=== PATIENT | male | born 1945 | race Caucasian/White ===

== ENCOUNTER → 2016-12-26 | Outpatient (CLI) | payer OTHER ==
[~2016-12-26] MED LIST: ANTI-DIARRHEA2 MG PO; BROVANA15 MCG/2 M IH; CARAFATE1 GM PO; DURAGESIC25 MCG TD; Diflucan PO; EFFEXOR75 MG PO; FLOMAX0.4 MG PO; Flomax PO; MEGESTROL ACETA20 MG PO; Micro-K,K-Tab,K-Dur, PO; PERCOCET 5/31 TABLET PO; PREDNISONE10 MG PO; PROTONIX40 MG PO; PROVENTIL,2.5 MG/3 M IH; PYRIDIUM100 MG PO; Protonix PO; SPIRIVA1 INHALATI IH; TYLENOL EXTRA500 MG PO; Ultram PO; VENTOLIN HFA18 GM IH; Vancocin Oral Soluti PO; ZANTAC300 MG PO; ZOFRAN4 MG PO
== END | disposition home or self-care (01) ==
LOC: OPR 08:08 → EDSTATUS 09:00 → OPR 09:00
PROC: 0BBF3ZX Excision of Right Lower Lung Lobe, Percutaneous Approach, Diagnostic (ICD-10-PCS; principal; 2016-12-26)
PROC: BB241ZZ Computerized Tomography (CT Scan) of Bilateral Lungs using Low Osmolar Contrast (ICD-10-PCS; principal; 2016-12-26)
DX: C34.31 Malignant neoplasm of lower lobe, right bronchus or lung (principal); Z87.891 Personal history of nicotine dependence
CPT/HCPCS: 71010; 77012; 88305; 88341 TC; 88342 TC; J3010

== ENCOUNTER 2017-07-06 00:42 | Inpatient (IN) | payer OTHER ==
[~2017-07-06] VITALS: Ht 172.7 cm; Wt 77.3 kg
[~2017-07-06 00:42] MED LIST changes: +OMEPRAZOLE40 M1 PO
[2017-07-06 01:08] LABS: BASOPHIL (%) 0.1 % (0-1); EOSINOPHIL (%) 0.1 % (0-5); HEMATOCRIT 38.2 % (38.0-50.0); HEMOGLOBIN 12.8 G/DL (12.5-16.6); IMMATURE GRANULOCYTE (%) 0.7 % (0.0-0.7); LYMPHOCYTE (%) 3.8 % (15-42); LYMPHOCYTE COUNT 0.4 K/uL (1.0-2.8); MCH 36.3 PG (29.0-34.0); MCHC 33.5 G/DL (30.0-36.0); MCV 108.2 FL (86-99); MONOCYTE COUNT 0.6 K/uL (0-0.8); NEUTROPHIL (%) 89.3 % (45-76); NEUTROPHIL COUNT 8.7 K/uL (1.8-6.4); PLATELET COUNT 143 K/uL (156-360); RBC DIS.WIDTH-CV 14.2 % (11.8-14.6); RBC DIS.WIDTH-SD 56.6 % (39-53); RED BLOOD COUNT 3.53 M/uL (4.00-5.50); WHITE BLOOD COUNT 9.7 K/uL (4.1-10.2)
[2017-07-06 01:17] LABS: ALBUMIN 3.9 g/dL (3.2-4.8); CHLORIDE 106 mEq/L (99-109); SODIUM 139 mEq/L (136-147)
[2017-07-06 01:19] LABS: GLUCOSE 130 mg/dL (70-99); TOTAL PROTEIN 7.9 g/dL (6.4-8.3)
[2017-07-06 01:21] LABS: TOTAL BILIRUBIN 4.5 mg/dL (0.0-1.0)
[2017-07-06 01:23] LABS: ALKALINE PHOSPHATASE 225 IU/L (3-129); GFR ESTIMATE (CALCULATED) > 59 mL/min/ (58.99-99999)
[2017-07-06 01:24] LABS: UREA NITROGEN (BUN) 17 mg/dL (9-23)
[2017-07-06 01:25] LABS: AST (GOT) 204 IU/L (2-34)
[2017-07-06 01:26] LABS: ALT (GPT) 233 IU/L (3-49); LIPASE 9 U/L (1.0-51.0)
[2017-07-06 01:29] LABS: TROP-I INTERPRETATION NEGATIVE; TROPONIN-I < 0.01 ng/mL (0.0-0.30)
[2017-07-06 03:15] LABS: APPEARANCE CLEAR ((CLEAR)); BILIRUBIN MODERATE; BLOOD NEGATIVE; COLOR AMBER ((YELLOW)); GLUCOSE (STRIP) NEGATIVE; KETONES 5; LEUKOCYTES NEGATIVE; NITRITE NEGATIVE; PROTEIN (STRIP) 30; SPECIFIC GRAVITY 1.042 (1.000-1.030); UCUL ADDED? NO
[2017-07-06 06:53] LABS: ICTOTEST POSITIVE
[2017-07-06 17:17] VITALS: BP 162/80
[2017-07-06 19:35] VITALS: BP 140/80
[2017-07-06 23:17] VITALS: BP 167/92
[2017-07-07] VITALS (9 sets, daily range): BP systolic 139–180; BP diastolic 76–110
[2017-07-07 06:10] LABS: HEMATOCRIT 29.5 % (38.0-50.0); INTER. NORMALIZED RATIO 1.2; MCH 36.7 PG (29.0-34.0); MCHC 33.2 G/DL (30.0-36.0); MCV 110.5 FL (86-99); PLATELET COUNT 109 K/uL (156-360); RBC DIS.WIDTH-CV 14.6 % (11.8-14.6); RBC DIS.WIDTH-SD 59.1 % (39-53); WHITE BLOOD COUNT 4.9 K/uL (4.1-10.2)
[2017-07-07 06:17] LABS: HEMOGLOBIN 9.8 G/DL (12.5-16.6); RED BLOOD COUNT 2.67 M/uL (4.00-5.50)
[2017-07-07 06:27] LABS: ALBUMIN 2.8 G/DL (3.2-4.8); ALKALINE PHOSPHATASE 177 IU/L (3-129); ALT (GPT) 155 IU/L (3-49); AST (GOT) 127 IU/L (2-34); CHLORIDE 107 MEQ/L (99-109); CREATININE 0.9 MG/DL (0.6-1.3); GFR ESTIMATE (CALCULATED) > 59 mL/min/ (58.99-99999); POTASSIUM 3.6 MEQ/L (3.7-5.4); SODIUM 138 MEQ/L (136-147); TOTAL PROTEIN 5.3 G/DL (6.4-8.3); UREA NITROGEN (BUN) 11 mg/dL (9-23)
[2017-07-07 06:28] LABS: GLUCOSE 84 mg/dL (70-99)
[2017-07-08 04:00] VITALS: BP 136/88
[2017-07-08 06:33] LABS: HEMATOCRIT 30.8 % (38.0-50.0); MCH 35.5 PG (29.0-34.0); MCHC 32.5 G/DL (30.0-36.0); MCV 109.2 FL (86-99); PLATELET COUNT 123 K/uL (156-360); RBC DIS.WIDTH-CV 14.7 % (11.8-14.6); RBC DIS.WIDTH-SD 59.5 % (39-53); RED BLOOD COUNT 2.82 M/uL (4.00-5.50); WHITE BLOOD COUNT 4.6 K/uL (4.1-10.2)
[2017-07-08 06:44] LABS: ALKALINE PHOSPHATASE 185 IU/L (3-129); ALT (GPT) 174 IU/L (3-49); AST (GOT) 142 IU/L (2-34); CHLORIDE 108 MEQ/L (99-109); CREATININE 0.9 MG/DL (0.6-1.3); GFR ESTIMATE (CALCULATED) > 59 mL/min/ (58.99-99999); GLUCOSE 74 mg/dL (70-99); POTASSIUM 3.8 MEQ/L (3.7-5.4); SODIUM 141 MEQ/L (136-147); TOTAL BILIRUBIN 4.9 MG/DL (0.0-1.0); TOTAL PROTEIN 5.6 G/DL (6.4-8.3); UREA NITROGEN (BUN) 8 mg/dL (9-23)
[2017-07-08 07:06] VITALS: BP 153/92
[2017-07-08 11:32] VITALS: BP 184/89
[2017-07-08 15:30] VITALS: BP 196/92
[2017-07-08 21:43] VITALS: BP 181/86
[2017-07-08 23:27] VITALS: BP 141/83
[2017-07-09 03:48] VITALS: BP 164/76
[2017-07-09 06:26] LABS: HEMATOCRIT 30.9 % (38.0-50.0); HEMOGLOBIN 10.3 G/DL (12.5-16.6); MCH 36.8 PG (29.0-34.0); MCHC 33.3 G/DL (30.0-36.0); MCV 110.4 FL (86-99); PLATELET COUNT 122 K/uL (156-360); RBC DIS.WIDTH-SD 61.1 % (39-53); WHITE BLOOD COUNT 5.5 K/uL (4.1-10.2)
[2017-07-09 06:52] LABS: ALBUMIN 2.9 G/DL (3.2-4.8); ALKALINE PHOSPHATASE 190 IU/L (3-129); ALT (GPT) 192 IU/L (3-49); AST (GOT) 143 IU/L (2-34); CHLORIDE 107 MEQ/L (99-109); CREATININE 0.9 MG/DL (0.6-1.3); GFR ESTIMATE (CALCULATED) > 59 mL/min/ (58.99-99999); GLUCOSE 88 mg/dL (70-99); POTASSIUM 3.8 MEQ/L (3.7-5.4); SODIUM 141 MEQ/L (136-147); TOTAL PROTEIN 5.3 G/DL (6.4-8.3); UREA NITROGEN (BUN) 11 mg/dL (9-23)
[2017-07-09 06:53] LABS: TOTAL BILIRUBIN 3.7 MG/DL (0.0-1.0)
[2017-07-09 08:39] VITALS: BP 165/92
[2017-07-09 11:00] VITALS: BP 128/78
[2017-07-09 15:00] VITALS: BP 136/76
[2017-07-09 19:46] VITALS: BP 132/84; BP 156/80
[2017-07-09 22:51] VITALS: BP 153/67
[2017-07-10 06:20] LABS: HEMATOCRIT 29.7 % (38.0-50.0); HEMOGLOBIN 9.8 G/DL (12.5-16.6); MCH 36.7 PG (29.0-34.0); MCV 111.2 FL (86-99); PLATELET COUNT 120 K/uL (156-360); RBC DIS.WIDTH-CV 15.4 % (11.8-14.6); RBC DIS.WIDTH-SD 61.9 % (39-53); RED BLOOD COUNT 2.67 M/uL (4.00-5.50); WHITE BLOOD COUNT 5.1 K/uL (4.1-10.2)
[2017-07-10 07:44] LABS: ALBUMIN 2.7 G/DL (3.2-4.8); ALKALINE PHOSPHATASE 175 IU/L (3-129); ALT (GPT) 168 IU/L (3-49); AST (GOT) 108 IU/L (2-34); CHLORIDE 108 MEQ/L (99-109); CREATININE 0.9 MG/DL (0.6-1.3); GFR ESTIMATE (CALCULATED) > 59 mL/min/ (58.99-99999); GLUCOSE 85 mg/dL (70-99); POTASSIUM 4.2 MEQ/L (3.7-5.4); SODIUM 140 MEQ/L (136-147); TOTAL PROTEIN 5.2 G/DL (6.4-8.3); UREA NITROGEN (BUN) 13 mg/dL (9-23)
[2017-07-10 07:47] LABS: TOTAL BILIRUBIN 2.4 MG/DL (0.0-1.0)
[2017-07-10 08:27] VITALS: BP 145/81
[2017-07-10 15:48] VITALS: BP 168/90
[2017-07-10 22:57] VITALS: BP 157/80; BP 188/92
[2017-07-11 06:25] LABS: ALBUMIN 2.6 G/DL (3.2-4.8); ALKALINE PHOSPHATASE 154 IU/L (3-129); ALT (GPT) 144 IU/L (3-49); AST (GOT) 81 IU/L (2-34); CHLORIDE 107 MEQ/L (99-109); CREATININE 0.7 MG/DL (0.6-1.3); GFR ESTIMATE (CALCULATED) > 59 mL/min/ (58.99-99999); GLUCOSE 82 mg/dL (70-99); POTASSIUM 3.4 MEQ/L (3.7-5.4); SODIUM 139 MEQ/L (136-147); TOTAL PROTEIN 5.1 G/DL (6.4-8.3); UREA NITROGEN (BUN) 9 mg/dL (9-23)
[2017-07-11 07:41] VITALS: BP 130/69
[2017-07-11 15:59] VITALS: BP 151/78
[2017-07-11 23:33] VITALS: BP 172/86
[2017-07-12 05:10] LABS: HEMATOCRIT 27.8 % (38.0-50.0); MCH 36.4 PG (29.0-34.0); MCHC 32.4 G/DL (30.0-36.0); MCV 112.6 FL (86-99); PLATELET COUNT 110 K/uL (156-360); RBC DIS.WIDTH-CV 14.7 % (11.8-14.6); RBC DIS.WIDTH-SD 60.8 % (39-53); RED BLOOD COUNT 2.47 M/uL (4.00-5.50); WHITE BLOOD COUNT 4.3 K/uL (4.1-10.2)
[2017-07-12 05:42] LABS: ALBUMIN 2.6 G/DL (3.2-4.8); ALKALINE PHOSPHATASE 144 IU/L (3-129); ALT (GPT) 114 IU/L (3-49); AST (GOT) 55 IU/L (2-34); CHLORIDE 107 MEQ/L (99-109); CREATININE 0.8 MG/DL (0.6-1.3); GFR ESTIMATE (CALCULATED) > 59 mL/min/ (58.99-99999); GLUCOSE 87 mg/dL (70-99); POTASSIUM 3.5 MEQ/L (3.7-5.4); SODIUM 142 MEQ/L (136-147); TOTAL BILIRUBIN 1.6 MG/DL (0.0-1.0); TOTAL PROTEIN 4.9 G/DL (6.4-8.3); UREA NITROGEN (BUN) 7 mg/dL (9-23)
[2017-07-12 06:55] VITALS: BP 151/113
[2017-07-12 17:34] VITALS: BP 117/75
[2017-07-12 19:42] VITALS: BP 185/92
[2017-07-12 22:08] VITALS: BP 150/85
[2017-07-12 22:43] VITALS: BP 146/79
[2017-07-13 04:13] VITALS: BP 142/89
[2017-07-13 06:16] LABS: BASOPHIL (%) 0.2 % (0-1); EOSINOPHIL (%) 0.2 % (0-5); HEMATOCRIT 31.6 % (38.0-50.0); HEMOGLOBIN 10.1 G/DL (12.5-16.6); IMMATURE GRANULOCYTE (%) 0.5 % (0.0-0.7); LYMPHOCYTE (%) 3.5 % (15-42); LYMPHOCYTE COUNT 0.3 K/uL (1.0-2.8); MCH 35.9 PG (29.0-34.0); MCV 112.5 FL (86-99); MONOCYTE (%) 8.7 % (3-12); MONOCYTE COUNT 0.8 K/uL (0-0.8); NEUTROPHIL (%) 86.9 % (45-76); NEUTROPHIL COUNT 8.3 K/uL (1.8-6.4); PLATELET COUNT 119 K/uL (156-360); RBC DIS.WIDTH-CV 15.2 % (11.8-14.6); RBC DIS.WIDTH-SD 63.1 % (39-53); RED BLOOD COUNT 2.81 M/uL (4.00-5.50); WHITE BLOOD COUNT 9.5 K/uL (4.1-10.2)
[2017-07-13 06:46] LABS: ALBUMIN 2.9 G/DL (3.2-4.8); ALKALINE PHOSPHATASE 138 IU/L (3-129); ALT (GPT) 111 IU/L (3-49); AST (GOT) 69 IU/L (2-34); CHLORIDE 106 MEQ/L (99-109); CREATININE 0.8 MG/DL (0.6-1.3); GFR ESTIMATE (CALCULATED) > 59 mL/min/ (58.99-99999); GLUCOSE 92 mg/dL (70-99); POTASSIUM 3.3 MEQ/L (3.7-5.4); SODIUM 139 MEQ/L (136-147); TOTAL BILIRUBIN 1.8 MG/DL (0.0-1.0); TOTAL PROTEIN 5.4 G/DL (6.4-8.3); UREA NITROGEN (BUN) 9 mg/dL (9-23)
[2017-07-13 06:55] VITALS: BP 172/82
[2017-07-13 17:31] VITALS: BP 166/74
[2017-07-13 19:54] VITALS: BP 153/72
[2017-07-14] VITALS (7 sets, daily range): BP systolic 131–166; BP diastolic 66–81
[2017-07-14 06:14] LABS: BASOPHIL (%) 0.1 % (0-1); EOSINOPHIL (%) 0.6 % (0-5); EOSINOPHIL COUNT 0.1 K/uL (0-0.3); HEMATOCRIT 27.6 % (38.0-50.0); HEMOGLOBIN 9.1 G/DL (12.5-16.6); IMMATURE GRANULOCYTE (%) 0.9 % (0.0-0.7); LYMPHOCYTE (%) 4.4 % (15-42); LYMPHOCYTE COUNT 0.5 K/uL (1.0-2.8); MCH 36.4 PG (29.0-34.0); MCV 110.4 FL (86-99); MONOCYTE (%) 9.7 % (3-12); NEUTROPHIL (%) 84.3 % (45-76); NEUTROPHIL COUNT 8.6 K/uL (1.8-6.4); PLATELET COUNT 122 K/uL (156-360); RBC DIS.WIDTH-CV 15.3 % (11.8-14.6); RBC DIS.WIDTH-SD 62.1 % (39-53); WHITE BLOOD COUNT 10.2 K/uL (4.1-10.2)
[2017-07-14 07:00] LABS: ALBUMIN 2.6 G/DL (3.2-4.8); ALKALINE PHOSPHATASE 115 IU/L (3-129); ALT (GPT) 81 IU/L (3-49); AST (GOT) 38 IU/L (2-34); CHLORIDE 107 MEQ/L (99-109); CREATININE 0.7 MG/DL (0.6-1.3); GFR ESTIMATE (CALCULATED) > 59 mL/min/ (58.99-99999); GLUCOSE 96 mg/dL (70-99); POTASSIUM 3.1 MEQ/L (3.7-5.4); SODIUM 141 MEQ/L (136-147); TOTAL BILIRUBIN 1.6 MG/DL (0.0-1.0); TOTAL PROTEIN 5.2 G/DL (6.4-8.3); UREA NITROGEN (BUN) 10 mg/dL (9-23)
[2017-07-15 06:00] LABS: HEMATOCRIT 26.1 % (38.0-50.0); HEMOGLOBIN 8.5 G/DL (12.5-16.6); MCH 36.8 PG (29.0-34.0); MCHC 32.6 G/DL (30.0-36.0); PLATELET COUNT 109 K/uL (156-360); RBC DIS.WIDTH-CV 15.6 % (11.8-14.6); RBC DIS.WIDTH-SD 64.9 % (39-53); RED BLOOD COUNT 2.31 M/uL (4.00-5.50); WHITE BLOOD COUNT 7.1 K/uL (4.1-10.2)
[2017-07-15 07:11] LABS: ALBUMIN 2.3 G/DL (3.2-4.8); ALKALINE PHOSPHATASE 92 IU/L (3-129); ALT (GPT) 53 IU/L (3-49); AST (GOT) 20 IU/L (2-34); CHLORIDE 109 MEQ/L (99-109); CREATININE 0.8 MG/DL (0.6-1.3); GFR ESTIMATE (CALCULATED) > 59 mL/min/ (58.99-99999); GLUCOSE 85 mg/dL (70-99); POTASSIUM 3.8 MEQ/L (3.7-5.4); SODIUM 141 MEQ/L (136-147); TOTAL BILIRUBIN 1.3 MG/DL (0.0-1.0); TOTAL PROTEIN 4.7 G/DL (6.4-8.3); UREA NITROGEN (BUN) 8 mg/dL (9-23)
[2017-07-15 07:26] VITALS: BP 144/90
[2017-07-15 11:07] VITALS: BP 147/83
[2017-07-15 15:38] VITALS: BP 168/88
[2017-07-16 07:46] VITALS: BP 129/79
[2017-07-16] MEDS ORDERED: LEVOFLOXACIN750 MG PO (10:50)
[2017-07-16] MEDS ORDERED: METOPROLOL TART25 MG PO (10:52)
[2017-07-16] MEDS ORDERED: OXYCODONE HCL5 MG PO (10:53)
== END 2017-07-16 12:24 | disposition home health service (06) | DRG 417 ==
LOC: EME → EDBD 00:42 → 5EAST 08:25 → EDOF 08:25 → ENRESERV 08:27 → EDOF 09:30 → ENRESERV 13:30 → 5EAST 16:13 → ENRESERV 07-13 14:06 → 5EAST 07-13 15:13
PROVIDERS: Emergency Medicine; Family Medicine; Internal Medicine; Internal Medicine Gastroenterology; Physician Assistant Surgical
DX: K80.65 Calculus of gallbladder and bile duct with chronic cholecystitis with obstruction (principal); F05 Delirium due to known physiological condition; E87.6 Hypokalemia; J18.9 Pneumonia, unspecified organism; Y95 Nosocomial condition; D64.9 Anemia, unspecified; C78.01 Secondary malignant neoplasm of right lung; I16.0 Hypertensive urgency; J93.83 Other pneumothorax; J90 Pleural effusion, not elsewhere classified; J98.11 Atelectasis; D69.59 Other secondary thrombocytopenia; T45.1X5A Adverse effect of antineoplastic and immunosuppressive drugs, initial encounter; J44.9 Chronic obstructive pulmonary disease, unspecified; J98.01 Acute bronchospasm; I10 Essential (primary) hypertension; E86.0 Dehydration; I25.10 Atherosclerotic heart disease of native coronary artery without angina pectoris; E66.9 Obesity, unspecified; Z66 Do not resuscitate; Z80.1 Family history of malignant neoplasm of trachea, bronchus and lung; Z85.46 Personal history of malignant neoplasm of prostate; Z87.891 Personal history of nicotine dependence; Z85.118 Personal history of other malignant neoplasm of bronchus and lung; Z68.25 Body mass index [BMI] 25.0-25.9, adult
CPT/HCPCS: 71045; 71046; 71250; 74018; 74177; 74181; 74328; 76705; 80053; 81003; 82140; 83605; 83690; 84484; 85025; 85027; 85610; 87040; 87081; 88304; 93005; 94640; 94640 76; 99202; 99281; 99285; C1757; C1769; C2625; J0330; J1170; J1885; J2250; J2270; J2370; J2405; J2543; J2765; J3010; J3480; J7030; J7050; S0028; S0074